=== PATIENT | female | born 1945 | race Caucasian/White ===

== ENCOUNTER 2017-03-28 12:57 | Observation (INO) | payer OTHER ==
[~2017-03-28] VITALS: Ht 162.6 cm; Wt 52.7 kg
[~2017-03-28 12:57] MED LIST: ASPIRIN81 M2 PO; ATORVASTATIN CA80 MG PO; CLOPIDOGREL75 MG PO; LOPRESSOR25 MG PO; NICOTINE PATCH1 EAC2 TD; NITROSTAT0.4 MG SL; RANITIDINE HCL150 MG PO; TYLENOL EXTRA500 MG PO
[2017-03-28 14:00] LABS: BASOPHIL COUNT 0.1 K/uL (0-0.1); EOSINOPHIL (%) 0.8 % (0-5); EOSINOPHIL COUNT 0.1 K/uL (0-0.3); HEMATOCRIT 38.6 % (36.0-46.0); IMMATURE GRANULOCYTE (%) 0.4 % (0.0-0.7); IMMATURE GRANULOCYTE COUNT 0.1 K/uL; INSTRUMENT ABS NEUTROPHIL CT 9.4 K/uL; LYMPHOCYTE COUNT 2.3 K/uL (1.0-2.8); MCH 34.5 PG (29.0-34.0); MCHC 34.5 G/DL (30.0-36.0); MEAN PLAT.VOLUME 8.6 uM^3 (9.5-12.4); MONOCYTE (%) 7.1 % (3-12); MONOCYTE COUNT 0.9 K/uL (0-0.8); NEUTROPHIL (%) 73.2 % (45-76); NEUTROPHIL COUNT 9.4 K/uL (1.8-6.4); PLATELET COUNT 399 K/uL (156-360); RBC DIS.WIDTH-CV 11.5 % (11.8-14.6); RBC DIS.WIDTH-SD 42.2 % (39-53); RED BLOOD COUNT 3.86 M/uL (3.80-5.20); WHITE BLOOD COUNT 12.9 K/uL (4.1-10.2)
[2017-03-28 14:07] LABS: PROTHROMBIN TIME 11.7 SEC (10.2-12.9)
[2017-03-28 14:09] LABS: CHLORIDE 101 mEq/L (99-109); POTASSIUM 4.1 mEq/L (3.7-5.4); SODIUM 134 mEq/L (136-147)
[2017-03-28 14:09] LABS: PTT 35.1 SEC (25-37)
[2017-03-28 14:11] LABS: GLUCOSE 89 mg/dL (70-99)
[2017-03-28 14:12] LABS: ANION GAP 10 MEQ/L (2-14)
[2017-03-28 14:14] LABS: GFR ESTIMATE (CALCULATED) > 59 mL/min/
[2017-03-28 14:15] LABS: UREA NITROGEN (BUN) 11 mg/dL (9-23)
[2017-03-28 14:21] LABS: TROP-I INTERPRETATION NEGATIVE; TROPONIN-I < 0.01 ng/mL (0.0-0.30)
[2017-03-28] MEDS ORDERED: VITAMIN C1500 MG PO (15:25)
[2017-03-28] MEDS ORDERED: B-121000 MC2 PO (15:26)
[2017-03-28] MEDS ORDERED: MULTI VITAMIN1 EACH PO (15:27)
[2017-03-28] MEDS ORDERED: LO-DOSE ASPIRIN81 M2 PO (15:28)
[2017-03-28 18:02] VITALS: BP 169/81
[2017-03-28 20:07] VITALS: BP 144/80
[2017-03-28 22:45] LABS: INTERNAL CONTROL VALID? YES
[2017-03-28 23:06] LABS: TROP-I INTERPRETATION NEGATIVE; TROPONIN-I < 0.01 ng/mL (0.0-0.30)
[2017-03-29 00:30] VITALS: BP 144/90
[2017-03-29 03:29] VITALS: BP 122/66
[2017-03-29 05:04] LABS: TROP-I INTERPRETATION NEGATIVE; TROPONIN-I < 0.01 ng/mL (0.0-0.30)
[2017-03-29 06:44] VITALS: BP 137/72
== END 2017-03-29 11:10 | disposition home or self-care (01) ==
LOC: EME 12:57 → EDOF 16:41 → ENRESERV 16:43 → 5WEST 17:52 → ENPENDDIS 03-29 → 5WEST 03-29 11:10
PROVIDERS: Internal Medicine; Physician Assistant; Physician Assistant Medical
DX: R07.9 Chest pain, unspecified (principal); I25.10 Atherosclerotic heart disease of native coronary artery without angina pectoris; Z95.5 Presence of coronary angioplasty implant and graft; Z87.11 Personal history of peptic ulcer disease; I10 Essential (primary) hypertension; E78.5 Hyperlipidemia, unspecified; R11.0 Nausea; M54.2 Cervicalgia; R10.13 Epigastric pain; F17.210 Nicotine dependence, cigarettes, uncomplicated; Z88.6 Allergy status to analgesic agent
CPT/HCPCS: 70498; 71020; 80048; 82272; 84484; 85025; 85379; 85610; 85730; 87502; 93005; G0378; J2405

== ENCOUNTER 2017-04-16 09:47 | Day surgery (SDC) | payer OTHER ==
[~2017-04-16] VITALS: Ht 160 cm; Wt 53.0 kg
[~2017-04-16 09:47] MED LIST changes: +B-121000 MC2 PO; +LO-DOSE ASPIRIN81 M2 PO; +MULTI VITAMIN1 EACH PO; +PLAVIX75 MG PO; +VITAMIN C1500 MG PO
[2017-04-16] MEDS ORDERED: AMLODIPINE BESYL5 MG PO (10:27)
== END 2017-04-16 16:46 | disposition home or self-care (01) ==
LOC: CATH 09:47
DX: R07.9 Chest pain, unspecified (principal); R06.02 Shortness of breath; I25.10 Atherosclerotic heart disease of native coronary artery without angina pectoris; I25.2 Old myocardial infarction; Z95.5 Presence of coronary angioplasty implant and graft; F17.210 Nicotine dependence, cigarettes, uncomplicated; E78.2 Mixed hyperlipidemia; Z79.82 Long term (current) use of aspirin
CPT/HCPCS: 85347; C1769; C1887; J0583; J1644; J2250; J3010; J7040

== ENCOUNTER 2017-05-08 14:01 | Inpatient (IN) | payer OTHER ==
[~2017-05-08] VITALS: Ht 160 cm; Wt 50.0 kg
[~2017-05-08 14:01] MED LIST changes: +AMLODIPINE BESYL5 MG PO
[2017-05-08 14:34] LABS: HEMOGLOBIN 12.9 G/DL (11.9-15.5); MCHC 34.9 G/DL (30.0-36.0); MCV 97.6 FL (83-99); PLATELET COUNT 280 K/uL (156-360); RBC DIS.WIDTH-CV 11.9 % (11.8-14.6); RBC DIS.WIDTH-SD 42.7 % (39-53); RED BLOOD COUNT 3.79 M/uL (3.80-5.20); WHITE BLOOD COUNT 15.3 K/uL (4.1-10.2)
[2017-05-08 14:42] LABS: ALBUMIN 3.8 g/dL (3.2-4.8); CHLORIDE 100 mEq/L (99-109); POTASSIUM 3.6 mEq/L (3.7-5.4); SODIUM 138 mEq/L (136-147)
[2017-05-08 14:45] LABS: GLUCOSE 147 mg/dL (70-99); TOTAL PROTEIN 7.2 g/dL (6.4-8.3)
[2017-05-08 14:47] LABS: TOTAL BILIRUBIN 0.4 mg/dL (0.0-1.0)
[2017-05-08 14:48] LABS: ALKALINE PHOSPHATASE 143 IU/L (3-129); CREATININE 0.8 mg/dL (0.6-1.3); GFR ESTIMATE (CALCULATED) > 59 mL/min/
[2017-05-08 14:49] LABS: UREA NITROGEN (BUN) 9 mg/dL (9-23)
[2017-05-08 14:50] LABS: AST (GOT) 34 IU/L (2-34)
[2017-05-08 14:51] LABS: ALT (GPT) 30 IU/L (3-49)
[2017-05-08 15:03] LABS: MAGNESIUM 1.7 mg/dL (1.3-2.7)
[2017-05-08 15:10] LABS: LIPASE 16 U/L (1.0-51.0)
[2017-05-08 15:16] LABS: TROP-I INTERPRETATION NEGATIVE; TROPONIN-I < 0.01 ng/mL (0.0-0.30)
[2017-05-08 15:42] LABS: APPEARANCE CLEAR ((CLEAR)); BILIRUBIN SMALL; BLOOD SMALL; COLOR YELLOW ((YELLOW)); GLUCOSE (STRIP) NEGATIVE; KETONES NEGATIVE; LEUKOCYTES NEGATIVE; NITRITE NEGATIVE; PROTEIN (STRIP) 100; SPECIFIC GRAVITY 1.039 (1.000-1.030); UROBILINOGEN 0.2 MG/DL (0.2-1.0)
[2017-05-08 15:52] LABS: BACTERIA NONE SEEN /HPF; EPITHELIAL CELLS RARE /HPF; MUCUS TRACE /LPF; RED BLOOD CELLS 0-5 /HPF (0-5); UCUL ADDED? NO; WHITE BLOOD CELLS 0-5 /HPF (0-5)
[2017-05-08] MEDS ORDERED: VITAMIN C1000 MG PO (19:08)
[2017-05-08 21:43] VITALS: BP 127/75
[2017-05-09] VITALS: BP 141/69
[2017-05-09 03:52] VITALS: BP 118/57
[2017-05-09 06:37] VITALS: BP 131/68
[2017-05-09 12:04] VITALS: BP 133/70
[2017-05-09 15:00] VITALS: BP 136/79
[2017-05-09 23:51] VITALS: BP 137/60
[2017-05-10 07:25] VITALS: BP 123/63
[2017-05-10 12:24] LABS: STOOL OCCULT BLD 1ST SPECIMEN NEGATIVE
[2017-05-10 15:38] VITALS: BP 141/68
[2017-05-11 00:10] VITALS: BP 130/64
[2017-05-11 07:10] LABS: CHLORIDE 100 MEQ/L (99-109); CREATININE 0.5 MG/DL (0.6-1.3); GFR ESTIMATE (CALCULATED) > 59 mL/min/; MAGNESIUM 1.9 mg/dl (1.3-2.7); POTASSIUM 3.9 MEQ/L (3.7-5.4); SODIUM 139 MEQ/L (136-147); UREA NITROGEN (BUN) 11 mg/dL (9-23)
[2017-05-11 07:11] LABS: GLUCOSE 110 mg/dL (70-99)
[2017-05-11 07:19] LABS: HEMATOCRIT 32.9 % (36.0-46.0); HEMOGLOBIN 11.2 G/DL (11.9-15.5); RBC DIS.WIDTH-SD 44.4 % (39-53); RED BLOOD COUNT 3.29 M/uL (3.80-5.20); WHITE BLOOD COUNT 12.6 K/uL (4.1-10.2)
[2017-05-11 07:20] VITALS: BP 150/78
[2017-05-11 07:25] LABS: PLATELET COUNT 449 K/uL (156-360)
[2017-05-11 16:34] VITALS: BP 150/75
[2017-05-11 23:45] VITALS: BP 147/68
[2017-05-12 06:31] LABS: BASOPHIL (%) 0.1 % (0-1); EOSINOPHIL (%) 0.2 % (0-5); HEMATOCRIT 29.7 % (36.0-46.0); HEMOGLOBIN 10.1 G/DL (11.9-15.5); LYMPHOCYTE (%) 21.8 % (15-42); LYMPHOCYTE COUNT 2.3 K/uL (1.0-2.8); MCH 33.8 PG (29.0-34.0); MCV 99.3 FL (83-99); MONOCYTE COUNT 1.6 K/uL (0-0.8); NEUTROPHIL (%) 61.9 % (45-76); NEUTROPHIL COUNT 6.6 K/uL (1.8-6.4); NRBC (%) 0.2 /100 WBC (0-0); PLATELET COUNT 401 K/uL (156-360); RBC DIS.WIDTH-CV 11.9 % (11.8-14.6); RED BLOOD COUNT 2.99 M/uL (3.80-5.20); WHITE BLOOD COUNT 10.6 K/uL (4.1-10.2)
[2017-05-12 06:52] LABS: CHLORIDE 100 MEQ/L (99-109); CREATININE 0.6 MG/DL (0.6-1.3); GFR ESTIMATE (CALCULATED) > 59 mL/min/; GLUCOSE 87 mg/dL (70-99); POTASSIUM 3.7 MEQ/L (3.7-5.4); SODIUM 140 MEQ/L (136-147); UREA NITROGEN (BUN) 13 mg/dL (9-23)
[2017-05-12 08:32] VITALS: BP 159/74
[2017-05-12] MEDS ORDERED: LEVOFLOXACIN750 MG PO (09:44)
[2017-05-12] MEDS ORDERED: MUCINEX600 MG PO (09:45)
[2017-05-12] MEDS ORDERED: DOCUSATE SODIU100 MG PO (09:45)
[2017-05-12] MEDS ORDERED: PREDNISONE20 MG PO (09:46)
== END 2017-05-12 12:03 | disposition home or self-care (01) | DRG 190 ==
LOC: EME 14:01 → 2EAST 19:46 → EDOF 19:46 → ENRESERV 19:47 → 2EAST 21:02 → ENPENDDIS 05-12 → 2EAST 05-12 12:03
PROVIDERS: Emergency Medicine; Internal Medicine; Physician Assistant Medical
DX: J44.0 Chronic obstructive pulmonary disease with (acute) lower respiratory infection (principal); J18.9 Pneumonia, unspecified organism; G89.29 Other chronic pain; R10.11 Right upper quadrant pain; I10 Essential (primary) hypertension; E78.5 Hyperlipidemia, unspecified; I25.10 Atherosclerotic heart disease of native coronary artery without angina pectoris; K21.9 Gastro-esophageal reflux disease without esophagitis; F32.9 Major depressive disorder, single episode, unspecified; F41.9 Anxiety disorder, unspecified; F17.200 Nicotine dependence, unspecified, uncomplicated; Z79.82 Long term (current) use of aspirin; Z23 Encounter for immunization; I25.2 Old myocardial infarction; Z80.0 Family history of malignant neoplasm of digestive organs; Z80.51 Family history of malignant neoplasm of kidney; Z80.7 Family history of other malignant neoplasms of lymphoid, hematopoietic and related tissues; Z82.49 Family history of ischemic heart disease and other diseases of the circulatory system; Z87.11 Personal history of peptic ulcer disease; Z79.02 Long term (current) use of antithrombotics/antiplatelets; Z95.5 Presence of coronary angioplasty implant and graft
CPT/HCPCS: 71046; 74177; 76705; 80048; 80053; 81003; 82272; 83605; 83690; 83735; 84484; 85025; 85027; 87040; 87070; 87205; 87449; 87502; 90686; 93005; 94640 76; 99202; 99281; 99285; J0692; J1644; J1885; J1956; J2920; J7030; J7120; J7512

== ENCOUNTER → 2017-05-24 | Outpatient (CLI) | payer OTHER ==
[~2017-05-24] VITALS: Ht 160 cm; Wt 52.2 kg
[~2017-05-24] MED LIST changes: +DOCUSATE SODIU100 MG PO; +LEVOFLOXACIN750 MG PO; +LIPITOR80 MG PO; +MUCINEX600 MG PO; +PREDNISONE20 MG PO; +VITAMIN C1000 MG PO
== END | disposition home or self-care (01) ==
LOC: AMB 11:59
PROC: 0DB68ZX Excision of Stomach, Via Natural or Artificial Opening Endoscopic, Diagnostic (ICD-10-PCS; principal; 2017-05-24)
DX: K25.9 Gastric ulcer, unspecified as acute or chronic, without hemorrhage or perforation (principal); K29.70 Gastritis, unspecified, without bleeding; B96.81 Helicobacter pylori [H. pylori] as the cause of diseases classified elsewhere; Z79.82 Long term (current) use of aspirin
CPT/HCPCS: 88305; 88342 TC